=== PATIENT | male | born 1955 | race Caucasian/White ===

== ENCOUNTER → 2017-12-18 | Outpatient (CLI) | payer BC ==
[~2017-12-18] MED LIST: ALLO-2 PO; ASP325 PO; ASPI-757 PO; EZET1TAB55 PO; HYDR-2966 PO; LISI-362 PO; LISI20TA29 PO; METO-253 PO; NEB5 PO; NEBI10TA4 PO; SIMV-42 PO; SIMV-49 PO
== END ==
LOC: LAB 10:26
PROVIDERS: ATTEND Internal Medicine
DX: L29.3 Anogenital pruritus, unspecified (principal); L29.9 Pruritus, unspecified; Z71.1 Person with feared health complaint in whom no diagnosis is made
CPT/HCPCS: 36415; 86703; 87491; 87591

== ENCOUNTER 2019-01-19 03:36 | Emergency (ER) | payer BC ==
[~2019-01-19 03:36] MED LIST changes: +AMLO-125 PO; +AMLO2.5T78 PO; +CARV25TA77 PO; +CHLOR25 PO; +INDO-23 PO; +LISI-374 PO; +LOSA100T75 PO
--- NOTE | 2019-01-19 03:39 | ER Report ---
History and Physical Time Seen By MD: 03:38 HPI/ROS CHIEF COMPLAINT: Difficulty breathing HISTORY OF PRESENT ILLNESS: 63-year-old male presents ambulatory to the ER complaining of difficulty breathing. He notes mild shortness of breath or prod uctive cough. He says. Illness started several days ago with a fever and now he has increased productive of colored sputum. He wears 4 L of O2 at night. Patient notes no leg swelling or calf pain. He denies chest pain. He denies diaphoresis REVIEW OF SYSTEMS: Respiratory: No cough, no dyspnea. Cardiovascular: No chest pain, no palpitations. Gastrointestinal: No vomiting, no abdominal pain. Musculoskeletal: No back pain. Allergies: Coded Allergies: hydrochlorothiazide (Unverified Allergy, Intermediate, hives, 01/19/19) Iodinated Contrast- Oral and IV Dye (Verified Allergy, Mild, 01/19/19) Sulfa (Sulfonamide Antibiotics) (Verified Allergy, Mild, 01/19/19) Home Meds Active Scripts Cefuroxime Axetil (CEFUROXIME) 500 Mg Tablet, 500 MG PO BID for infection, #14 TAB Prov:KOMAL FELIZ DO 01/19/19 Discontinued Reported Medications Losartan Potassium (LOSARTAN POTASSIUM) 100 Mg Tablet, 1 TAB PO QDAY, TAB 12/24/18 Chlorthalidone (CHLORTHALIDONE) 25 Mg Tab, 0.5 TAB PO QDAY, TAB 12/24/18 Carvedilol (COREG) 25 Mg Tablet, 1 TAB PO BID, TAB 12/24/18 Aspirin (ASPIRIN) 325 Mg Tablet, 1 TAB PO QDAY, TAB 01/31/15 Discontinued Scripts Indomethacin (INDOMETHACIN) 50 Mg Capsule, 1 CAP PO TID PRN for gout flare, #15 CAPSULE 1 Refill Take with food, taper dose rapidly, lowest effective dose for shortest effective duration. Prov:KULDEEP MCKNIGHT MD 12/24/18 Simvastatin (SIMVASTATIN) 20 Mg Tablet, 1 TAB PO HS, #90 TAB 1 Refill Prov:KULDEEP MCKNIGHT MD 09/12/18 Past Medical/Surgical History Past Medical History HEENT: Reports hx of: hearing deficit (unspecified hearing loss) Cardiovascular: Reports hx of: DVT (post ankle fracture) hyperlipidemia hypertension (essential) Genitourinary: Reports hx of: other urinary history (personal hx other disorder urinary system) Musculoskeletal: Reports hx of: fractures (L ankle in HS) gout Hematology/oncology: Reports hx of: other hematologic history (polycythemia 03/03) Past Surgical History Gastrointestinal: Reports hx of: hernia repair (Left inguinal, teenager) Genitourinary: Reports hx of: other surgery (testicle bx, tumor resection 1986) Reviewed Nurses Notes: Yes Old Medical Records Reviewed: Yes Smoking Status: Never Smoker Exposure to Second Hand Smoke?: Yes Constitutional Vital Sign - Last 24 Hours 01/19/19 01/19/19 01/19/19 01/19/19 03:40 03:42 03:44 03:47 Temp 97.8 Pulse 79 Resp 18 B/P (MAP) 149/94 149/94 (112) Pulse Ox 82 O2 Delivery Room Air O2 Flow Rate 4.0 01/19/19 01/19/19 01/19/19 01/19/19 03:51 03:59 04:00 04:03 Pulse 77 75 73 Resp 9 18 16 B/P (MAP) 119/70 (86) Pulse Ox 92 01/19/19 01/19/19 01/19/19 04:06 05:01 05:06 Pulse 76 77 Resp 15 B/P (MAP) 113/59 (77) Pulse Ox 90 93 Physical Exam General Appearance: The patient is alert, has no immediate need for airway protection and no current signs of toxicity. Vital signs stable, afebrile, pulse ox 84% on room air. Patient normally wears 4 L at night. He should saturation in the low 90s on 4 L. HEENT: Pupils equal and round no injection. TMs normal, oropharynx with mild erythema Respiratory: Chest is non tender, lungs are clear to auscultation. No wheezing or rails Cardiac: regular rate and rhythm, no murmur Gastrointestinal: Abdomen is soft and non tender, no masses, bowel sounds normal. Musculoskeletal: Neck: Neck is supple and non tender. No lymphadenopathy, no JVD Extremities have full range of motion and are non tender. No edema, no calf tenderness Skin: No rashes or lesions. DIFFERENTIAL DIAGNOSIS: After history and physical exam differential diagnosis was considered for shortness of breath including but not limited to pulmonary infectious process, COPD, asthma, pulmonary embolus and congestive heart failure. Medical Decision Making Data Points Result Diagram: 01/19/19 0350 01/19/19 0350 Laboratory Hematology Test 01/19/19 03:49 01/19/19 03:50 Influenza Virus Type A (PCR) Negative (NEGATIVE) Influenza Virus Type B (PCR) Negative (NEGATIVE) Red Blood Count 4.48 M/uL (4.00-5.60) Mean Corpuscular Volume 100.2 fL (80.0-96.0) Mean Corpuscular Hemoglobin 35.4 pg (26.0-33.0) Mean Corpuscular Hemoglobin Concent 35.3 g/dL (32.0-36.0) Red Cell Distribution Width 12.5 % (11.5-14.5) Mean Platelet Volume 9.3 fL (7.2-11.1) Neutrophils (%) (Auto) 82.6 % (39.4-72.5) Lymphocytes (%) (Auto) 7.4 % (17.6-49.6) Monocytes (%) (Auto) 8.0 % (4.1-12.4) Eosinophils (%) (Auto) 1.3 % (0.4-6.7) Basophils (%) (Auto) 0.7 % (0.3-1.4) Nucleated RBC Relative Count (auto) 0.0 /100WBC Neutrophils # (Auto) 8.3 K/uL (2.0-7.4) Lymphocytes # (Auto) 0.7 K/uL (1.3-3.6) Monocytes # (Auto) 0.8 K/uL (0.3-1.0) Eosinophils # (Auto) 0.1 K/uL (0.0-0.5) Basophils # (Auto) 0.1 K/uL (0.0-0.1) Nucleated RBC Absolute Count (auto) 0.00 K/uL D-Dimer Quantitative (PE/DVT) 0.43 ug/ml (0-0.50) Sodium Level 130 mmol/L (137-145) Potassium Level 4.4 mmol/L (3.5-5.0) Chloride Level 89 mmol/L (98-107) Carbon Dioxide Level 30 mmol/L (22-30) Blood Urea Nitrogen 20 mg/dl (9-21) Creatinine 1.10 mg/dl (0.66-1.25) Glomerular Filtration Rate Calc > 60.0 Random Glucose 115 mg/dl (75-110) Lactate 0.9 mmol/L (0.7-2.1) Calcium Level 9.1 mg/dl (8.4-10.2) Total Bilirubin 2.7 mg/dl (0.2-1.3) Aspartate Amino Transf (AST/SGOT) 41 U/L (0-35) Alanine Aminotransferase (ALT/SGPT) 59 U/L (0-56) Alkaline Phosphatase 92 U/L (0-126) Troponin I < 0.012 ng/ml B-Type Natriuretic Peptide 52 pg/ml (0-100) Total Protein 7.3 g/dl (6.3-8.2) Albumin 4.2 g/dl (3.5-5.0) Chemistry Test 01/19/19 03:49 01/19/19 03:50 Influenza Virus Type A (PCR) Negative (NEGATIVE) Influenza Virus Type B (PCR) Negative (NEGATIVE) White Blood Count 10.0 k/uL (4.5-11.0) Red Blood Count 4.48 M/uL (4.00-5.60) Hemoglobin 15.9 g/dL (14.0-18.0) Hematocrit 44.9 % (42.0-52.0) Mean Corpuscular Volume 100.2 fL (80.0-96.0) Mean Corpuscular Hemoglobin 35.4 pg (26.0-33.0) Mean Corpuscular Hemoglobin Concent 35.3 g/dL (32.0-36.0) Red Cell Distribution Width 12.5 % (11.5-14.5) Platelet Count 177 K/uL (150-450) Mean Platelet Volume 9.3 fL (7.2-11.1) Neutrophils (%) (Auto) 82.6 % (39.4-72.5) Lymphocytes (%) (Auto) 7.4 % (17.6-49.6) Monocytes (%) (Auto) 8.0 % (4.1-12.4) Eosinophils (%) (Auto) 1.3 % (0.4-6.7) Basophils (%) (Auto) 0.7 % (0.3-1.4) Nucleated RBC Relative Count (auto) 0.0 /100WBC Neutrophils # (Auto) 8.3 K/uL (2.0-7.4) Lymphocytes # (Auto) 0.7 K/uL (1.3-3.6) Monocytes # (Auto) 0.8 K/uL (0.3-1.0) Eosinophils # (Auto) 0.1 K/uL (0.0-0.5) Basophils # (Auto) 0.1 K/uL (0.0-0.1) Nucleated RBC Absolute Count (auto) 0.00 K/uL D-Dimer Quantitative (PE/DVT) 0.43 ug/ml (0-0.50) Glomerular Filtration Rate Calc > 60.0 Lactate 0.9 mmol/L (0.7-2.1) Calcium Level 9.1 mg/dl (8.4-10.2) Total Bilirubin 2.7 mg/dl (0.2-1.3) Aspartate Amino Transf (AST/SGOT) 41 U/L (0-35) Alanine Aminotransferase (ALT/SGPT) 59 U/L (0-56) Alkaline Phosphatase 92 U/L (0-126) Troponin I < 0.012 ng/ml B-Type Natriuretic Peptide 52 pg/ml (0-100) Total Protein 7.3 g/dl (6.3-8.2) Albumin 4.2 g/dl (3.5-5.0) Coagulation Test 01/19/19 03:50 D-Dimer Quantitative (PE/DVT) 0.43 ug/ml EKG/Imaging EKG Interpretation 12 lead EK Rhythm: normal sinus rhythm [place]: normal QRS: normal ST segments: normal, no evidence of ischemia or dysrhythmia, no old EKGs were found to compare to. Imaging X-ray: Two-view chest x-ray was obtained. I viewed the images myself on the PACS system. My interpretation of the images is: There is infiltrate in the left lower lobe lingular area. Comparison was made to previous chest x-ray dated 03/14/09. The radiologist interpretation had no clinically significant variation from this interpretation. ED Course/Re-evaluation Clinical Indication for ER IV: IV Access ED Course Patient was minute to an examination room. H&P was done. The differential diagnoses was considered. Patient with hypoxia. He normally wears 4 L of O2 at night. He has been ill with fever and chills from 3 or 4 nights ago. He's had a productive cough since then. His fevers have abated. Patient's white blood cell count was normal, but there was a left shift. Patient EKG, troponin, d- dimer and BNP were unremarkable. However, his LFTs were mildly elevated. The bili of 2.7. His are new on comparison to old LFTs from 07/05. Patient is a low sodium of 130. Likely secondary to his diuretic. They may need to be changed. Patient's advised to follow-up with his primary care doctor this next week. Patient was given a gram of Rocephin IV. He was discharged on Ceftin 500 mg by mouth twice a day. Decision to Disposition Date: Jan 19, 2019 Decision to Disposition Time: 04:29 Depart Departure Latest Vital Signs Vital Signs Date Time Temp Pulse Resp B/P (MAP) Pulse Ox O2 Delivery O2 Flow Rate FiO2 01/19/19 05:06 77 93 01/19/19 05:01 113/59 (77) 01/19/19 04:06 15 01/19/19 03:47 4.0 01/19/19 03:44 97.8 01/19/19 03:40 Room Air Impression: Primary Impression: Pneumonia Additional Impressions: Hypoxia Abnormal LFTs Hyponatremia Condition: Improved Disposition: HOME OR SELF-CARE Referrals: KULDEEP MCKINGHT MD (PCP) New Scripts Cefuroxime Axetil (CEFUROXIME) 500 Mg Tablet 500 MG PO BID for infection, #14 TAB Prov: KOMAL FELIZ DO 01/19/19 Patient Instructions: Bacterial Pneumonia (ED) Additional Instructions: Use Robitussin-DM cough medicine Follow-up with your primary care doctor for abnormal liver function tests. It may be related to some of the new medications you've been started on Problem Qualifiers Primary Impression: Pneumonia Pneumonia type: due to unspecified organism Laterality: left Lung location: upper lobe of lung Qualified Codes: J18.1 - Lobar pneumonia, unspecified organism KOMAL FELIZ DO Jan 19, 2019 03:39
[2019-01-19] MEDS ORDERED: ALBUTEROL/IPRATROPIUM 3 ML NEB NEB ONE (03:50)
--- NOTE | 2019-01-19 04:06 | EKG ---
[place] [facility] [place] NAME: JUAN ESPINAL : [id number] MR: [id number] V: [id number] EXAM DATE: ORDERING PHYSICIAN: KOMAL FELIZ TECHNOLOGIST: TATA Test Reason : DYSPNEA Blood Pressure : / mmHG Vent. Rate : 073 BPM Atrial Rate : 073 BPM P-R Int : 148 ms QRS Dur : 096 ms QT Int : 398 ms P-R-T Axes : 059 018 030 degrees QTc Int : 438 ms Normal sinus rhythm Normal ECG No previous ECGs available Confirmed by SHELBI RODRIGUEZ ([id number]) on 01/19/2019 6:36:43 AM Referred By: Confirmed By:SHELBI RODRIGUEZ
[2019-01-19 04:08] LABS: PLATELET COUNT, AUTOMATED 177 K/uL (150-450)
--- NOTE | 2019-01-19 04:33 | RADIOLOGY IMAGING REPORT ---
FACILITY: [facility] PATIENT NAME: Hugo Toavr : 1955 MR: [id number] V: [id number] EXAM DATE: ORDERING PHYSICIAN: KOMAL FELIZ TECHNOLOGIST: Location: [facility] Patient: Hugo Tovar : 1955 Visit/Account:[id number] Date of Sevice: 01/19/2019 CHEST PA LAT HISTORY: Chest pain. Cough and congestion. COMPARISON: 03/14/2009. TECHNIQUE: PA and lateral views of the chest. FINDINGS: Pulmonary/pleura: There are right middle lobe and left lower lobe patchy opacities, new. There is no pneumothorax or pleural effusion. There is mild right hemidiaphragm elevation. Cardiomediastinal: Cardiac and mediastinal silhouettes are within normal limits. There is mild aortic calcification. Bones/soft tissues: No acute osseous abnormality. The visible abdomen is normal. IMPRESSION: 1. Right middle lobe and left lower lobe patchy opacities may be atelectasis or pneumonia. Follow-up chest x-ray to ensure clearing is recommended. Report Dictated By: Tatiana Corea at 01/19/2019 4:27 AM Report E-Signed By: Tatiana Corea at 01/19/2019 4:30 AM WSN:[id number]
[2019-01-19] MEDS ORDERED: cefTRIAXone 1 GM VIAL IVP ONE (04:40)
[2019-01-19] MEDS ORDERED: CEFU500T10 PO (04:44)
[2019-01-19 05:01] VITALS: BP 113/59
== END 2019-01-19 05:24 | disposition home or self-care (01) ==
LOC: ER 03:54
DX: J18.1 Lobar pneumonia, unspecified organism (principal); R09.02 Hypoxemia; R94.5 Abnormal results of liver function studies; E87.1 Hypo-osmolality and hyponatremia
CPT/HCPCS: 71046; 83605; 83880; 84484; 85025; 85379; 87502; 93005; 94640; 96374; 99283; J0696; J7620; 82040; 82247; 82310; 82374; 82435; 82565; 82947; 84075; 84132; 84155; 84295; 84450; 84460; 84520

== ENCOUNTER → 2019-02-07 | Outpatient (REF) | payer BC ==
[~2019-02-07] MED LIST changes: +CEFU500T10 PO
[2019-02-07 14:05] LABS: PLATELET COUNT, AUTOMATED 160 K/uL (150-450)
== END ==
PROVIDERS: ATTEND Nurse Practitioner Family
DX: R33.9 Retention of urine, unspecified (principal)
CPT/HCPCS: 82040; 82247; 82310; 82374; 82435; 82565; 82947; 84075; 84132; 84153; 84155; 84295; 84450; 84460; 84520; 85025

== ENCOUNTER → 2019-03-03 | Outpatient (CLI) | payer BC ==
[~2019-03-03] MED LIST changes: +ALLO100T70 PO; +CARV25TA78 PO; +COLC0.6T2 PO
[2019-03-03 08:30] LABS: PLATELET COUNT, AUTOMATED 134 K/uL (150-450)
== END ==
LOC: LAB 08:14
PROVIDERS: ATTEND Internal Medicine
DX: I10 Essential (primary) hypertension (principal); R94.5 Abnormal results of liver function studies; M10.9 Gout, unspecified; E78.5 Hyperlipidemia, unspecified
CPT/HCPCS: 36415; 81001; 82040; 82247; 82310; 82374; 82435; 82465; 82565; 82947; 83718; 84075; 84132; 84155; 84295; 84443; 84450; 84460; 84478; 84520; 84550; 85025